=== PATIENT | female | born 1980 | race Caucasian/White ===

== ENCOUNTER 2017-01-24 22:29 | Emergency (ER) | payer OTHER, SELFPAY ==
[~2017-01-24] VITALS: Ht 167.6 cm; Wt 100.0 kg
[2017-01-24 22:29] VITALS: BP 145/73
[~2017-01-24 22:29] MED LIST: BENA25CA2 PO; IRON65TA PO; LEXA1TAB2 PO; VITA1CAP40 PO; [UNRECOGNIZED DRUG - OTHER] PO; lortab PO; motrin PO
[2017-01-24] MEDS ORDERED: CEPH250T PO (23:21)
[2017-01-24] MEDS ORDERED: CEPHALEXIN 250 MG CAP PO ONE (23:30)
[2017-01-24] MEDS ORDERED: ACETAMINOPH W/CODEINE #3 TAB UD PO ONE (23:30)
== END 2017-01-24 23:34 | disposition home or self-care (01) ==
LOC: M ED 22:29
DX: L03.115 Cellulitis of right lower limb (principal); L03.116 Cellulitis of left lower limb; Z87.891 Personal history of nicotine dependence

== ENCOUNTER → 2017-03-26 | Outpatient (CLI) | payer OTHER ==
[~2017-03-26] MED LIST changes: +CEPH250T PO
[2017-03-26 11:47] LABS: BASO % 0.4 % (0.0-1.0); EOS # 0.1 10^3/uL (0.0-0.50); EOS % 1.1 % (0.0-3.0); IMMATURE GRANULOCYTE % 0.2 % (0-0); LYMPH # 3.7 10^3/uL (1.5-4.5); LYMPH % 37.8 % (24.0-44.0); MEAN CORPUSCULAR HEMOGLOBIN 32.7 pg (27.0-33.0); MONO # 0.5 10^3/uL (0.0-0.8); MONO % 4.8 % (0.0-5.0); NEUTROPHILS # 5.4 10^3/uL (1.8-7.7); NEUTROPHILS % 55.7 % (36.0-66.0); RED CELL DISTRIBUTION WIDTH 13.2 % (11.5-14.5); WHITE BLOOD COUNT 9.7 10^3/uL (4.0-10.0)
[2017-03-26 15:32] LABS: ALBUMIN 3.7 GM/DL (3.2-5.2); ALBUMIN/GLOBULIN RATIO 1.23 (1.00-1.93); ALKALINE PHOSPHATASE 57 U/L (45-117); ALT/SGPT 21 U/L (12-78); ANION GAP 8 MEQ/L (8-16); AST/SGOT 11 U/L (15-37); BILIRUBIN,TOTAL 1.1 MG/DL (0.2-1.0); BLOOD UREA NITROGEN 10 MG/DL (7-18); CARBON DIOXIDE LEVEL 25 MEQ/L (21-32); CHLORIDE LEVEL 110 MEQ/L (98-107); CHOLESTEROL LEVEL 162 MG/DL (<200); CREATININE FOR GFR 0.69 MG/DL (0.55-1.02); GLOMERULAR FILTRATION RATE > 60.0 (>60); GLUCOSE, FASTING 86 MG/DL (70-105); POTASSIUM SERUM 3.9 MEQ/L (3.5-5.1); SODIUM LEVEL 143 MEQ/L (136-145); TOTAL PROTEIN 6.7 GM/DL (6.4-8.2); TRIGLYCERIDES LEVEL 112 MG/DL (<150)
== END ==
LOC: M LAB 10:59
PROVIDERS: ATTEND Physician Assistant Medical
DX: E78.2 Mixed hyperlipidemia (principal)

== ENCOUNTER 2017-09-09 10:27 | Emergency (ER) | payer OTHER ==
[2017-09-09] MEDS: NS 1,000 ML IV (11:00)
[2017-09-09 11:01] LABS: BASO # 0.1 10^3/uL (0.0-0.2); BASO % 0.3 % (0.0-1.0); EOS # 0.1 10^3/uL (0.0-0.50); EOS % 0.4 % (0.0-3.0); HEMATOCRIT 36.9 % (36.0-47.0); HEMOGLOBIN 12.9 g/dl (12.0-16.0); IMMATURE GRANULOCYTE % 0.3 % (0-3.0); LYMPH # 4.2 10^3/uL (1.5-4.5); LYMPH % 28.7 % (24.0-44.0); MEAN CORPUSCULAR HEMOGLOBIN 32.4 pg (27.0-33.0); MEAN CORPUSCULAR VOLUME 92.7 fl (80.0-96.0); MONO # 0.7 10^3/uL (0.0-0.8); MONO % 4.9 % (0.0-5.0); NEUTROPHILS # 9.6 10^3/uL (1.8-7.7); NEUTROPHILS % 65.4 % (36.0-66.0); PLATELET COUNT, AUTOMATED 385 10^3/uL (150-450); RED BLOOD COUNT 3.98 10^6/uL (4.00-5.40); RED CELL DISTRIBUTION WIDTH 13.1 % (11.5-14.5); WHITE BLOOD COUNT 14.8 10^3/uL (4.0-10.0)
[2017-09-09 11:12] LABS: KETONE, URINE AUTO RFX 2+ mg/dL (NEGATIVE); MUCUS, URINE RFX LARGE (NEGATIVE); NITRITE, URINE AUTO RFX NEGATIVE (NEGATIVE); RBC, URINE AUTO RFX 15 /HPF (0-3); SPECIFIC GRAVITY UR AUTO RFX 1.034 (1.002-1.035); SQUAM EPITHELIAL CELL UR AURFX 6 /HPF (0-6)
[2017-09-09 11:13] LABS: LEUKOCYTE ESTERASE UR AUTO RFX 2+ (NEGATIVE); WBC, URINE AUTO RFX 38 /HPF (0-3)
[2017-09-09 11:17] LABS: ALBUMIN 4.2 GM/DL (3.2-5.2); ALKALINE PHOSPHATASE 65 U/L (45-117); ALT/SGPT 27 U/L (12-78); ANION GAP 11 MEQ/L (8-16); AST/SGOT 20 U/L (7-37); BILIRUBIN,DIRECT 0.4 MG/DL (0.0-0.2); BILIRUBIN,TOTAL 1.7 MG/DL (0.2-1.0); BLOOD UREA NITROGEN 11 MG/DL (7-18); CARBON DIOXIDE LEVEL 23 MEQ/L (21-32); CHLORIDE LEVEL 107 MEQ/L (98-107); CREATININE FOR GFR 0.79 MG/DL (0.55-1.30); GLOMERULAR FILTRATION RATE > 60.0 (>60); GLUCOSE, FASTING 95 MG/DL (70-100); LIPASE 122 U/L (73-393); POTASSIUM SERUM 3.3 MEQ/L (3.5-5.1); SODIUM LEVEL 141 MEQ/L (136-145); TOTAL PROTEIN 7.7 GM/DL (6.4-8.2)
[2017-09-09] MEDS ORDERED: ISOVUE-370 76% 100ML VIAL (Q9967) As Ordered (12:14)
[2017-09-09] MEDS: POTASSIUM CHLORIDE 10 MEQ SR TABLET PO (13:35)
[2017-09-09] MEDS: BACTRIM 160MG/800MG DS TAB PO (14:08)
== END 2017-09-09 14:10 | disposition home or self-care (01) ==
LOC: M ED 10:27
DX: R10.9 Unspecified abdominal pain (principal); R11.10 Vomiting, unspecified; R19.7 Diarrhea, unspecified; N39.0 Urinary tract infection, site not specified; F41.9 Anxiety disorder, unspecified; F33.9 Major depressive disorder, recurrent, unspecified; F17.200 Nicotine dependence, unspecified, uncomplicated; Z87.440 Personal history of urinary (tract) infections
CPT/HCPCS: Q9967

== ENCOUNTER 2017-09-12 09:36 | Emergency (ER) | payer OTHER ==
[2017-09-12 10:32] LABS: BASO # 0.1 10^3/uL (0.0-0.2); BASO % 0.6 % (0.0-1.0); EOS # 0.1 10^3/uL (0.0-0.50); EOS % 0.6 % (0.0-3.0); HEMATOCRIT 34.1 % (36.0-47.0); HEMOGLOBIN 11.8 g/dl (12.0-16.0); IMMATURE GRANULOCYTE % 0.2 % (0-3.0); LYMPH # 3.5 10^3/uL (1.5-4.5); LYMPH % 37.5 % (24.0-44.0); MEAN CORPUSCULAR HEMOGLOBIN 32.4 pg (27.0-33.0); MEAN CORPUSCULAR HGB CONC 34.6 g/dl (32.0-36.5); MEAN CORPUSCULAR VOLUME 93.7 fl (80.0-96.0); MONO # 0.5 10^3/uL (0.0-0.8); MONO % 5.3 % (0.0-5.0); NEUTROPHILS # 5.2 10^3/uL (1.8-7.7); NEUTROPHILS % 55.8 % (36.0-66.0); PLATELET COUNT, AUTOMATED 339 10^3/uL (150-450); RED BLOOD COUNT 3.64 10^6/uL (4.00-5.40); RED CELL DISTRIBUTION WIDTH 13.2 % (11.5-14.5); WHITE BLOOD COUNT 9.4 10^3/uL (4.0-10.0)
[2017-09-12 10:38] LABS: APPEARANCE, URINE CLOUDY (CLEAR); BACTERIA, URINE AUTO 1+ (NEGATIVE); BILIRUBIN, URINE AUTO NEGATIVE (NEGATIVE); BLOOD, URINE BLOOD NEGATIVE (NEGATIVE); CALCIUM OXALATE CRYSTALS SMALL; COLOR, URINE YELLOW (YELLOW); GLUCOSE, URINE (UA) AUTO NEGATIVE (NEGATIVE); KETONE, URINE AUTO 1+ mg/dL (NEGATIVE); LEUKOCYTE ESTERASE, URINE AUTO 1+ (NEGATIVE); MUCUS, URINE SMALL (NEGATIVE); NITRITE, URINE AUTO NEGATIVE (NEGATIVE); PROTEIN, URINE AUTO NEGATIVE (NEGATIVE); RBC, URINE AUTO 4 /HPF (0-3); SQUAMOUS EPITHELIAL CELL UR AU 9 /HPF (0-6); UROBILINOGEN, URINE AUTO 0.2 mg/dL (0.0-2.0); WBC, URINE AUTO 7 /HPF (0-3)
[2017-09-12 10:56] LABS: ANION GAP 8 MEQ/L (8-16); BLOOD UREA NITROGEN 7 MG/DL (7-18); CALCIUM LEVEL 8.7 MG/DL (8.5-10.1); CARBON DIOXIDE LEVEL 20 MEQ/L (21-32); CHLORIDE LEVEL 111 MEQ/L (98-107); CREATININE FOR GFR 0.65 MG/DL (0.55-1.30); GLOMERULAR FILTRATION RATE > 60.0 (>60); GLUCOSE, FASTING 92 MG/DL (70-100); POTASSIUM SERUM 3.8 MEQ/L (3.5-5.1); SODIUM LEVEL 139 MEQ/L (136-145)
== END 2017-09-12 11:39 | disposition home or self-care (01) ==
LOC: M ED 09:36
DX: N39.0 Urinary tract infection, site not specified (principal); F33.9 Major depressive disorder, recurrent, unspecified; F17.200 Nicotine dependence, unspecified, uncomplicated; Z79.2 Long term (current) use of antibiotics; Z79.899 Other long term (current) drug therapy; Z98.890 Other specified postprocedural states
CPT/HCPCS: 80048

== ENCOUNTER → 2017-10-08 | Outpatient (REF) | payer OTHER, MEDICAID ==
[2017-10-08 12:36] LABS: BASO % 0.4 % (0.0-1.0); EOS # 0.1 10^3/uL (0.0-0.50); HEMOGLOBIN 12.1 g/dl (12.0-15.5); IMMATURE GRANULOCYTE % 0.3 % (0-3.0); LYMPH # 3.3 10^3/uL (1.5-4.5); LYMPH % 34.8 % (24.0-44.0); MEAN CORPUSCULAR HEMOGLOBIN 30.8 pg (27.0-33.0); MEAN CORPUSCULAR HGB CONC 32.7 g/dl (32.0-36.5); MEAN CORPUSCULAR VOLUME 94.1 fl (80.0-96.0); MONO # 0.5 10^3/uL (0.0-0.8); NEUTROPHILS # 5.5 10^3/uL (1.8-7.7); NEUTROPHILS % 58.5 % (36.0-66.0); PLATELET COUNT, AUTOMATED 366 10^3/uL (150-450); RED BLOOD COUNT 3.93 10^6/uL (4.00-5.40); RED CELL DISTRIBUTION WIDTH 13.2 % (11.5-14.5); WHITE BLOOD COUNT 9.4 10^3/uL (4.0-10.0)
[2017-10-08 12:47] LABS: TOTAL 25(OH) VITAMIN D 19.1 NG/ML (30.0-100.0)
[2017-10-08 13:19] LABS: ALBUMIN 3.7 GM/DL (3.2-5.2); ALBUMIN/GLOBULIN RATIO 1.19 (1.00-1.93); ALKALINE PHOSPHATASE 57 U/L (45-117); ALT/SGPT 21 U/L (12-78); ANION GAP 6 MEQ/L (8-16); AST/SGOT 20 U/L (7-37); BILIRUBIN,TOTAL 0.4 MG/DL (0.2-1.0); BLOOD UREA NITROGEN 15 MG/DL (7-18); CALCIUM LEVEL 9.1 MG/DL (8.5-10.1); CARBON DIOXIDE LEVEL 27 MEQ/L (21-32); CHLORIDE LEVEL 108 MEQ/L (98-107); CREATININE FOR GFR 0.69 MG/DL (0.55-1.30); GLOMERULAR FILTRATION RATE > 60.0 (>60); GLUCOSE, FASTING 84 MG/DL (70-100); POTASSIUM SERUM 4.2 MEQ/L (3.5-5.1); SODIUM LEVEL 141 MEQ/L (136-145); TOTAL PROTEIN 6.8 GM/DL (6.4-8.2)
== END ==
LOC: M LAB REF 12:06
DX: E66.9 Obesity, unspecified (principal); D64.9 Anemia, unspecified; E55.9 Vitamin D deficiency, unspecified

== ENCOUNTER → 2017-10-18 | Outpatient (CLI) | payer OTHER | LOC: M RAD 10:58 | DX: N83.209 Unspecified ovarian cyst, unspecified side (principal); Z90.710 Acquired absence of both cervix and uterus | CPT/HCPCS: 76856 ==

== ENCOUNTER → 2017-10-25 | Outpatient (CLI) | payer OTHER | LOC: M CARPUL 08:56 | DX: R01.1 Cardiac murmur, unspecified (principal) | CPT/HCPCS: 93306 ==

== ENCOUNTER → 2018-07-02 | Outpatient (REF) | payer OTHER ==
[~2018-07-02] MED LIST changes: +BACT800T5 PO; +K-TA1TAB PO; -VITA1CAP40 PO; +VITA50005 PO; +ZOFR4TAB14 PO
[2018-07-02 13:25] LABS: BASO # 0.1 10^3/uL (0.0-0.2); BASO % 0.7 % (0.0-1.0); EOS # 0.1 10^3/uL (0.0-0.50); EOS % 1.1 % (0.0-3.0); HEMATOCRIT 34.9 % (36.0-47.0); HEMOGLOBIN 11.5 g/dl (12.0-15.5); LYMPH # 2.8 10^3/uL (1.5-4.5); MEAN CORPUSCULAR HEMOGLOBIN 31.4 pg (27.0-33.0); MEAN CORPUSCULAR VOLUME 95.4 fl (80.0-96.0); MONO # 0.5 10^3/uL (0.0-0.8); MONO % 4.9 % (0.0-5.0); NEUTROPHILS # 6.4 10^3/uL (1.8-7.7); NEUTROPHILS % 65.1 % (36.0-66.0); PLATELET COUNT, AUTOMATED 366 10^3/uL (150-450); RED BLOOD COUNT 3.66 10^6/uL (4.00-5.40); WHITE BLOOD COUNT 9.9 10^3/uL (4.0-10.0)
[2018-07-02 13:40] LABS: ALBUMIN 3.5 GM/DL (3.2-5.2); ALT/SGPT 21 U/L (12-78); BILIRUBIN,TOTAL 0.5 MG/DL (0.2-1.0); BLOOD UREA NITROGEN 18 MG/DL (7-18); CALCIUM LEVEL 8.6 MG/DL (8.5-10.1); CARBON DIOXIDE LEVEL 25 MEQ/L (21-32); CHLORIDE LEVEL 109 MEQ/L (98-107); CHOLESTEROL LEVEL 199 MG/DL (<200); CHOLESTEROL RISK RATIO 4.061 (<5); CREATININE FOR GFR 0.67 MG/DL (0.55-1.30); GLOMERULAR FILTRATION RATE > 60.0 (>60); GLUCOSE, FASTING 88 MG/DL (70-100); HDL CHOLESTEROL 49 MG/DL (>40); LDL CHOLESTEROL 128 MG/DL (<100); NON-HDL-C 150 MG/DL; POTASSIUM SERUM 4.9 MEQ/L (3.5-5.1); SODIUM LEVEL 141 MEQ/L (136-145); TOTAL PROTEIN 6.6 GM/DL (6.4-8.2); TRIGLYCERIDES LEVEL 109 MG/DL (<150)
[2018-07-02 13:42] LABS: TOTAL 25(OH) VITAMIN D 23.2 NG/ML (30.0-100.0)
[2018-07-02 14:24] LABS: HEMOGLOBIN A1c 5.3 %
== END ==
LOC: M LAB REF 12:42
PROVIDERS: ATTEND Nurse Practitioner Family
DX: E66.9 Obesity, unspecified (principal); Z13.9 Encounter for screening, unspecified

== ENCOUNTER → 2020-02-02 | Emergency (ER) | payer OTHER, SELFPAY ==
[~2020-02-02] MED LIST changes: +ISOVUE-370 76% 100ML VIAL As Ordered ONE; +KETOROLAC 30 MG/ML 1ML VIAL As Ordered ONE; +ONDANSETRON 4MG/2ML VIAL As Ordered ONE
[2020-04-26 03:33] LABS: ALBUMIN 3.3 GM/DL (3.2-5.2); ALT/SGPT 20 U/L (12-78); BILIRUBIN,DIRECT 0.2 MG/DL (0.0-0.2); BILIRUBIN,TOTAL 0.6 MG/DL (0.2-1.0); BLOOD UREA NITROGEN 7 MG/DL (7-18); CALCIUM LEVEL 8.4 MG/DL (8.5-10.1); CARBON DIOXIDE LEVEL 26 MEQ/L (21-32); CHLORIDE LEVEL 108 MEQ/L (98-107); CREATININE FOR GFR 0.72 MG/DL (0.55-1.30); GLOMERULAR FILTRATION RATE > 60.0 (>60); GLUCOSE, FASTING 85 MG/DL (70-100); LIPASE 111 U/L (73-393); POTASSIUM SERUM 3.8 MEQ/L (3.5-5.1); SODIUM LEVEL 140 MEQ/L (136-145); TOTAL PROTEIN 6.4 GM/DL (6.4-8.2)
== END | disposition home or self-care (01) ==
LOC: M ED 15:35
DX: N83.291 Other ovarian cyst, right side (principal); K52.9 Noninfective gastroenteritis and colitis, unspecified; J45.909 Unspecified asthma, uncomplicated; F17.210 Nicotine dependence, cigarettes, uncomplicated; Z79.51 Long term (current) use of inhaled steroids
CPT/HCPCS: 74177; 80048; 80076; 83690; 96374; 96375; 99284; J1885; J2405; Q9967

== ENCOUNTER 2020-05-04 11:59 | Emergency (ER) | payer OTHER, SELFPAY ==
[~2020-05-04] VITALS: Ht 167.6 cm; Wt 98.2 kg
[~2020-05-04 11:59] MED LIST changes: -ISOVUE-370 76% 100ML VIAL As Ordered ONE; -KETOROLAC 30 MG/ML 1ML VIAL As Ordered ONE; -ONDANSETRON 4MG/2ML VIAL As Ordered ONE
[2020-05-04] MEDS ORDERED: KETOROLAC TROMETHAMINE 10 MG TAB PO ONE (12:45)
[2020-05-04 13:19] LABS: INFLUENZA A AMPLIFICATION NEGATIVE (NEGATIVE); INFLUENZA B AMPLIFICATION NEGATIVE (NEGATIVE)
[2020-05-04 14:10] VITALS: BP 143/78
== END 2020-05-04 14:13 | disposition home or self-care (01) ==
LOC: M ED 11:59
DX: R51.9 Headache, unspecified (principal); Z20.828 Contact with and (suspected) exposure to other viral communicable diseases; F41.9 Anxiety disorder, unspecified; F33.9 Major depressive disorder, recurrent, unspecified; F17.200 Nicotine dependence, unspecified, uncomplicated
CPT/HCPCS: 87502; 99284; U0003

== ENCOUNTER → 2020-06-09 | Outpatient (REF) | payer OTHER ==
[2020-06-09 13:52] LABS: BASO # 0.1 10^3/uL (0.0-0.2); BASO % 0.5 % (0.0-1.0); EOS # 0.2 10^3/uL (0.0-0.5); EOS % 1.5 % (0.0-3.0); HEMATOCRIT 34.5 % (36.0-47.0); HEMOGLOBIN 11.4 g/dl (12.0-15.5); LYMPH # 4.1 10^3/uL (1.5-5.0); LYMPH % 38.7 % (24.0-44.0); MEAN CORPUSCULAR HEMOGLOBIN 32.7 pg (27.0-33.0); MEAN CORPUSCULAR VOLUME 98.9 fl (80.0-96.0); MONO # 0.5 10^3/uL (0.0-0.8); MONO % 4.9 % (0.0-5.0); NEUTROPHILS # 5.8 10^3/uL (1.5-8.5); NEUTROPHILS % 54.2 % (36.0-66.0); PLATELET COUNT, AUTOMATED 360 10^3/uL (150-450); RED BLOOD COUNT 3.49 10^6/uL (4.00-5.40); WHITE BLOOD COUNT 10.6 10^3/uL (4.0-10.0)
[2020-06-09 14:06] LABS: ALBUMIN 3.2 GM/DL (3.2-5.2); ALT/SGPT 19 U/L (12-78); BLOOD UREA NITROGEN 12 MG/DL (7-18); CALCIUM LEVEL 8.5 MG/DL (8.5-10.1); CARBON DIOXIDE LEVEL 28 MEQ/L (21-32); CHLORIDE LEVEL 108 MEQ/L (98-107); CHOLESTEROL LEVEL 162 MG/DL (<200); CREATININE FOR GFR 0.68 MG/DL (0.55-1.30); GLOMERULAR FILTRATION RATE > 60.0 (>58); GLUCOSE, FASTING 91 MG/DL (70-100); HDL CHOLESTEROL 45 MG/DL (>40); LDL CHOLESTEROL 100 MG/DL (<100); NON-HDL-C 117 MG/DL; POTASSIUM SERUM 4.4 MEQ/L (3.5-5.1); SODIUM LEVEL 140 MEQ/L (136-145); TOTAL PROTEIN 5.9 GM/DL (6.4-8.2); TRIGLYCERIDES LEVEL 83 MG/DL (<150)
[2020-06-09 14:10] LABS: TOTAL 25(OH) VITAMIN D 18.7 NG/ML (30.0-100.0)
[2020-06-09 14:50] LABS: HIV 1&2 SCREEN CENTAUR NEGATIVE (NEGATIVE)
[2020-06-09 15:29] LABS: HEMOGLOBIN A1c 5.4 %
== END ==
LOC: M LAB REF 12:43
PROVIDERS: ATTEND Nurse Practitioner Family
DX: Z00.00 Encounter for general adult medical examination without abnormal findings (principal)

== ENCOUNTER → 2024-04-06 | Outpatient (CLI) | payer MEDICAID ==
[~2024-04-06] MED LIST changes: +ACET-683 PO; +IBUP-1022 PO; +LIDO5DIS41 TD; +METH-1164 PO; +NAPR-837 PO; +NITR-67 PO
== END ==
LOC: M PLAIMG 12:15 → MERGE 12:15
PROVIDERS: ATTEND Nurse Practitioner Family
DX: R91.1 Solitary pulmonary nodule (principal); M51.34 Other intervertebral disc degeneration, thoracic region

== ENCOUNTER → 2024-04-15 | Outpatient (CLI) | payer MEDICAID, SELFPAY | LOC: M WHC 06:52 → MERGE 06:52 | PROVIDERS: ATTEND Nurse Practitioner Family | DX: Z12.31 Encounter for screening mammogram for malignant neoplasm of breast (principal) ==

== ENCOUNTER 2024-06-06 15:09 | Emergency (ER) | payer BC, MEDICAID, OTHER, SELFPAY ==
[~2024-06-06] VITALS: Ht 167.6 cm; Wt 93.8 kg
[2024-06-06] MEDS ORDERED: ALBU8.5H (15:26)
[2024-06-06] MEDS: KETOROLAC 30 MG/ML 1ML VIAL IV ONE (17:33)
[2024-06-06] MEDS: ACETAMINOPHEN *IV* 1,000 MG in IV 1 EA IV ONE (17:34)
[2024-06-06 18:04] LABS: BASO # 0.1 10^3/uL (0.0-0.2); BASO % 0.4 % (0.0-1.0); EOS # 0.1 10^3/uL (0.0-0.5); EOS % 0.5 % (0.0-3.0); HEMATOCRIT 32.3 % (36.0-47.0); HEMOGLOBIN 10.9 g/dl (12.0-15.5); LYMPH # 3.1 10^3/uL (1.5-5.0); MEAN CORPUSCULAR HEMOGLOBIN 32.6 pg (27.0-33.0); MEAN CORPUSCULAR HGB CONC 33.7 g/dl (32.0-36.5); MEAN CORPUSCULAR VOLUME 96.7 fl (80.0-96.0); MONO # 0.9 10^3/uL (0.0-0.8); MONO % 6.3 % (2.0-8.0); NEUTROPHILS # 10.6 10^3/uL (1.5-8.5); NEUTROPHILS % 71.5 % (36.0-66.0); PLATELET COUNT, AUTOMATED 296 10^3/uL (150-450); RED BLOOD COUNT 3.34 10^6/uL (4.00-5.40); WHITE BLOOD COUNT 14.8 10^3/uL (4.0-10.0)
[2024-06-06 18:10] LABS: ERYTHROCYTE SEDIMENTATION RATE 56 mm/hr (0-20)
[2024-06-06 18:26] LABS: C REACTIVE PROTEIN QUANTITATIV 4.42 MG/DL (<1.0)
[2024-06-06 18:27] LABS: BLOOD UREA NITROGEN 12 MG/DL (9-23); CALCIUM LEVEL 9.2 MG/DL (8.5-10.1); CARBON DIOXIDE LEVEL 25 MMOL/L (20-31); CHLORIDE LEVEL 106 MMOL/L (98-107); CREATININE FOR GFR 0.68 MG/DL (0.55-1.30); GLOMERULAR FILTRATION RATE > 60.0 (>58); GLUCOSE, FASTING 96 MG/DL (60-100); POTASSIUM SERUM 4.1 MMOL/L (3.5-5.1); SODIUM LEVEL 138 MMOL/L (136-145)
[2024-06-06] MEDS: DALBAVANCIN 1,500 MG in D5W 250 ML IV ONE (20:28)
[2024-06-06 21:34] VITALS: BP 133/61; TEMP 98.1; O2SAT 97
== END 2024-06-06 21:37 | disposition left against medical advice (07) ==
LOC: EEVIPCON 15:09 → M ED 15:09
DX: L03.011 Cellulitis of right finger (principal); D64.9 Anemia, unspecified; F17.200 Nicotine dependence, unspecified, uncomplicated; F12.10 Cannabis abuse, uncomplicated; Z90.49 Acquired absence of other specified parts of digestive tract; Z79.52 Long term (current) use of systemic steroids; Z53.9 Procedure and treatment not carried out, unspecified reason
CPT/HCPCS: 73030; 73140; 80048; 83605; 85025; 85652; 86140; 87040; 87070; 87077; 87186; 87205; 96365; 96366; 96375; 99284; J0131; J0875; J1885

== ENCOUNTER 2025-02-14 13:07 | Emergency (ER) | payer SELFPAY ==
[~2025-02-14] VITALS: Ht 167.6 cm; Wt 87.1 kg
[~2025-02-14 13:07] MED LIST changes: +ALBU8.5H; -IBUP-1022 PO; +IBUP600T42 PO; +LIDO1ADH93 TD; -LIDO5DIS41 TD
[2025-02-14] MEDS ORDERED: NOXI1TAB PO (13:17)
[2025-02-14] MEDS ORDERED: IRON1TAB2 PO (13:17)
[2025-02-14 13:53] LABS: BASO # 0.1 10^3/uL (0.0-0.2); BASO % 0.8 % (0.0-1.0); EOS # 0.1 10^3/uL (0.0-0.5); EOS % 1.5 % (0.0-3.0); LYMPH # 3.4 10^3/uL (1.5-5.0); LYMPH % 43.3 % (24.0-44.0); MONO # 0.6 10^3/uL (0.0-0.8); MONO % 7.2 % (2.0-8.0); NEUTROPHILS # 3.7 10^3/uL (1.5-8.5); NEUTROPHILS % 47.1 % (36.0-66.0); PLATELET COUNT, AUTOMATED 364 10^3/uL (150-450)
[2025-02-14 14:16] LABS: ALT/SGPT 15 U/L (7.0-40); AST/SGOT 14 U/L (<34); CALCIUM LEVEL 9.4 MG/DL (8.5-10.1); CARBON DIOXIDE LEVEL 29 MMOL/L (20-31); CHLORIDE LEVEL 104 MMOL/L (98-107); CREATININE FOR GFR 0.82 MG/DL (0.55-1.30); GLOMERULAR FILTRATION RATE > 90.0 (>58); MAGNESIUM LEVEL 1.8 MG/DL (1.8-2.4); POTASSIUM SERUM 4.6 MMOL/L (3.5-5.1); SODIUM LEVEL 142 MMOL/L (136-145)
[2025-02-14] MEDS: ACETAMINOPHEN 500 MG TAB PO ONE (14:56)
[2025-02-14] MEDS: KETOROLAC 30 MG/ML 1 ML VIAL IV ONE (14:56)
[2025-02-14] MEDS: NS (Normal Saline) 0.9% 1,000 ML IV ONE (14:56)
[2025-02-14] MEDS: diphenhydrAMINE 50 MG/ML VIAL IV ONE (14:57)
[2025-02-14 15:58] VITALS: TEMP 98.5
[2025-02-14 16:01] VITALS: BP 146/76; O2SAT 98
== END 2025-02-14 16:16 | disposition home or self-care (01) ==
LOC: M ED 13:07
DX: S06.0X0D Concussion without loss of consciousness, subsequent encounter (principal); R51.9 Headache, unspecified; F32.A Depression, unspecified; F41.9 Anxiety disorder, unspecified; F17.200 Nicotine dependence, unspecified, uncomplicated; F12.10 Cannabis abuse, uncomplicated; Z87.42 Personal history of other diseases of the female genital tract; Z90.49 Acquired absence of other specified parts of digestive tract; Z79.52 Long term (current) use of systemic steroids; Z79.899 Other long term (current) drug therapy
CPT/HCPCS: 70450; 80053; 83735; 85025; 93005; 96361; 96374; 96375; 99284; J1200; J1885; J2765